=== PATIENT | female | born 1975 | race Caucasian/White ===

== ENCOUNTER 2019-02-19 13:41 | Emergency (ER) | payer OTHER ==
[~2019-02-19] VITALS: Ht 170.2 cm; Wt 68.0 kg
[2019-02-19] MEDS ORDERED: SEASONIQUE 0.11 EACH PO (13:54)
[2019-02-19 15:17] VITALS: BP 145/79
== END 2019-02-19 15:18 | disposition home or self-care (01) ==
LOC: M.ERS 13:41
DX: S63.682A Other sprain of left thumb, initial encounter (principal); X50.9XXA Other and unspecified overexertion or strenuous movements or postures, initial encounter; Y93.68 Activity, volleyball (beach) (court); Y92.89 Other specified places as the place of occurrence of the external cause; Y99.8 Other external cause status